=== PATIENT | female | born 1950 | race Caucasian/White ===

== ENCOUNTER 2017-10-05 13:29 | Inpatient (IN) | payer MEDICARE, BC ==
[~2017-10-05] VITALS: Ht 170.2 cm; Wt 56.7 kg
[~2017-10-05 13:29] MED LIST: BIEST CREAM TOP; DULO60CA45 PO; ESZO2TAB22 PO; LURA20TA PO; MELO7.5T12 PO; PROG1POW MC; TEST5POW5 MC
--- NOTE | 2017-10-05 13:41 | NUR ---
MSE DONE BY DR WILLIS AT BEDSIDE 01B.
[2017-10-05 14:02] LABS: EOSINOPHILS # (AUTO) 0.1 K/uL (0.0-0.7); EOSINOPHILS % (AUTO) 3.6 % (0.0-7.0); HEMATOCRIT 32.4 % (31.2-41.9); HEMOGLOBIN 11.2 g/dL (10.9-14.3); LYMPHOCYTES # (AUTO) 0.5 K/uL (20.0-40.0); LYMPHOCYTES % (AUTO) 20.5 % (20.5-51.5); MEAN CORPUSCULAR HEMOGLOBIN 35.2 uug (24.7-32.8); MEAN CORPUSCULAR HGB CONC 35 g/dL (32.3-35.6); MEAN CORPUSCULAR VOLUME 101.8 fL (75.5-95.3); MONOCYTES # (AUTO) 0.3 K/uL (2.0-10.0); MONOCYTES % (AUTO) 11.9 % (0.0-11.0); NEUTROPHILS # (AUTO) 1.6 K/uL (1.8-8.9); PLATELET COUNT (AUTO) 204 K/uL (179-408); RED BLOOD CELL COUNT(AUTO) 3.19 MIL/uL (3.63-4.92); WHITE BLOOD COUNT (AUTO) 2.5 K/uL (3.8-11.8)
[2017-10-05 14:15] LABS: POTASSIUM 4.8 mmol/L (3.5-5.1)
[2017-10-05 14:20] LABS: BILIRUBIN,DIRECT 0.1 mg/dL (0.0-0.2); BILIRUBIN,TOTAL 0.3 mg/dL (0.2-1.0); TOTAL PROTEIN, SERUM 7.1 g/dL (6.4-8.2)
[2017-10-05] MEDS ORDERED: diphenhydrAMINE 50 MG/1 ML VIAL IV ONE (14:30)
[2017-10-05] MEDS ORDERED: KETOROLAC TROMETHAMINE 30 MG INJ IVP ONE (14:30)
[2017-10-05] MEDS ORDERED: PROCHLORPERAZINE EDISYLATE 10 MG/2 ML VIAL IV ONE (14:30)
[2017-10-05] MEDS ORDERED: IV NORMAL SALINE 1000 ML BAG IV ONE (14:30)
[2017-10-05] MEDS ORDERED: diphenhydrAMINE 50 MG/1 ML VIAL ONE (14:36)
[2017-10-05] MEDS ORDERED: KETOROLAC TROMETHAMINE 30 MG INJ ONE (14:37)
[2017-10-05] MEDS ORDERED: PROCHLORPERAZINE EDISYLATE 10 MG/2 ML VIAL ONE (14:37)
[2017-10-05 14:43] LABS: BAND % (MANUAL) 2 % (0-10); EOSINOPHILS % (MANUAL) 4 % (0-8); LYMPHOCYTES % (MANUAL) 27 % (20-40); MONOCYTES % (MANUAL) 7 % (2-10); NEUTROPHILS % (MANUAL) 60 % (42-75)
[2017-10-05] MEDS ORDERED: Z GUARD REMEDY PASTE 57 GM TUBE TOP PRN (15:00)
[2017-10-05] MEDS ORDERED: NITROGLYCERIN 0.4 MG/TAB BOTTLE SL PRN (15:00)
[2017-10-05] MEDS ORDERED: ONDANSETRON 4 MG/2 ML VIAL IV PRN (15:00)
[2017-10-05] MEDS ORDERED: HYDROCODONE/APAP 5-325MG TABLET PO PRN (15:00)
[2017-10-05] MEDS ORDERED: ACETAMINOPHEN 325 MG TABLET PO PRN (15:00)
[2017-10-05] MEDS ORDERED: MAGNESIUM HYDROXIDE 30 ML LIQUID UDC PO PRN (15:00)
[2017-10-05] MEDS ORDERED: ENOXAPARIN SODIUM 40 MG/0.4 ML DISP.SYRIN SQ SCH (15:00)
[2017-10-05] MEDS: ASPIRIN 325 MG TABLET PO SCH (15:09)
[2017-10-05] MEDS ORDERED: ENOXAPARIN SODIUM 40 MG/0.4 ML DISP.SYRIN SQ ONE (15:11)
[2017-10-05] MEDS ORDERED: ASPIRIN 325 MG TABLET ONE (15:12)
--- NOTE | 2017-10-05 15:30 | NUR ---
PT UPDATED THE MED LIST FOLLOWS: PT TAKES ONLY THE FOLLOWING: KEPPRA 500MG PO BIB EFFEXOR 37.5MG PO DAILY MOBIC 7.5 MG PO BID LAMOTRIGINE 200MG PO DAILY. THE ABOVE LIST WILL BE ADDED TO MED RECONCILIATION. MICH AGOSTO RN NOTIFIED OF THIS UPDATE. TEREZA SNYDER WILL INFORM DR. PITTMAN FOR THE UPDATE.
[2017-10-05] MEDS ORDERED: LEVE500T9 PO (16:06)
[2017-10-05] MEDS ORDERED: MELO7.5T12 PO (16:06)
[2017-10-05] MEDS ORDERED: LAMO200T PO (16:06)
[2017-10-05] MEDS ORDERED: VENL75TA4 PO (16:06)
--- NOTE | 2017-10-05 16:14 | NUR ---
PT TRANSFERED TO FLOOR INSTABLE CONDITION, PT SAYS THAT THE CP HAS SUBSIDED AND HEADACHE DOWN TO TOLRABLE LEVEL.
[2017-10-05 16:27] VITALS: BP 138/72
--- NOTE | 2017-10-05 16:30 | NUR ---
ADMITTED FROM HOME VIA ER WITH ADM DX OF CHEST PAIN/HEADACHE AWAKE ALERT AND ORIENTED X3 STILL C/O STARR 08/31 DENIES CP. SR ON MONITOR. ROUTINE ADMISSION ASSESSMENT INITIATED. WILL CALL HOSPITALIST FOR ORDERS
--- NOTE | 2017-10-05 18:38 | NUR ---
RESTING COMFORTABLY IN BED NO SS OF ACUTE PAIN, SR ON MONITOR
[2017-10-05 20:00] VITALS: BP 101/46
--- NOTE | 2017-10-05 20:00 | NUR ---
Pt observed to be resting at this time, easily arousable to verbal and tactile stimuli. No s/s of distress noted. Tele noted to be sinus rhiannon with HR at 55. Bed in low, locked position. Call light within reach. Will continue to monitor closely.
[2017-10-05] MEDS ORDERED: ESZOPICLONE 2 MG PO SCH (21:00)
--- NOTE | 2017-10-05 21:30 | NUR ---
RECEIVED HOME MEDS FROM PATIENT, WILL ENDORSE TO PHARMACY
[2017-10-06] VITALS: BP 96/51
[2017-10-06 04:00] VITALS: BP 107/42
[2017-10-06 06:54] LABS: CREATININE 0.9 mg/dL (0.6-1.3); MAGNESIUM 2.1 mg/dL (1.8-2.4); POTASSIUM 4.2 mmol/L (3.5-5.1)
[2017-10-06] MEDS ORDERED: VENL37.55 PO (07:48)
[2017-10-06 08:00] LABS: BASOPHILS % (AUTO) 1.7 % (0.0-2.0); EOSINOPHILS # (AUTO) 0.1 K/uL (0.0-0.7); EOSINOPHILS % (AUTO) 5.9 % (0.0-7.0); HEMATOCRIT 31.1 % (31.2-41.9); HEMOGLOBIN 10.8 g/dL (10.9-14.3); LYMPHOCYTES # (AUTO) 0.6 K/uL (20.0-40.0); LYMPHOCYTES % (AUTO) 26.6 % (20.5-51.5); MEAN CORPUSCULAR HEMOGLOBIN 35.7 uug (24.7-32.8); MEAN CORPUSCULAR HGB CONC 35 g/dL (32.3-35.6); MEAN CORPUSCULAR VOLUME 102.6 fL (75.5-95.3); MONOCYTES # (AUTO) 0.3 K/uL (2.0-10.0); MONOCYTES % (AUTO) 11.7 % (0.0-11.0); NEUTROPHILS # (AUTO) 1.2 K/uL (1.8-8.9); NEUTROPHILS % (AUTO) 54.1 % (38.5-71.5); RED BLOOD CELL COUNT(AUTO) 3.03 MIL/uL (3.63-4.92); WHITE BLOOD COUNT (AUTO) 2.1 K/uL (3.8-11.8)
--- NOTE | 2017-10-06 08:00 | NUR ---
SEEN BY HOSPITALIST WITH DC ORDER, REMAINS SR . SEEN BY DR RAMIREZ SEE NOTES
[2017-10-06 08:02] LABS: PLATELET COUNT (AUTO) 142 K/uL (179-408)
[2017-10-06] MEDS: ASPIRIN 325 MG TABLET PO SCH (08:27)
[2017-10-06] MEDS ORDERED: LEVETIRACETAM 500 MG TABLET PO SCH (09:00)
[2017-10-06] MEDS ORDERED: VENLAFAXINE 75 MG TABLET PO SCH (09:00)
[2017-10-06] MEDS ORDERED: ENOXAPARIN SODIUM 40 MG/0.4 ML DISP.SYRIN SQ SCH (09:00)
[2017-10-06] MEDS ORDERED: LAMOTRIGINE 200 MG TABLET PO SCH (09:00)
[2017-10-06] MEDS ORDERED: MELOXICAM 7.5 MG TABLET PO SCH (09:00)
[2017-10-06] MEDS ORDERED: DULOXETINE 60 MG CAPSULE.DR PO SCH (09:00)
[2017-10-06 09:11] LABS: BASOPHILS % (MANUAL) 2 % (0-2); EOSINOPHILS % (MANUAL) 6 % (0-8); LYMPHOCYTES % (MANUAL) 26 % (20-40); MONOCYTES % (MANUAL) 12 % (2-10); NEUTROPHILS % (MANUAL) 54 % (42-75)
--- NOTE | 2017-10-06 10:02 | NUR ---
DCD HOME STABLE ACCOMPANIED BY WITH FOLLOW-UP INSTRUCTION WITH PCP AND HIGHWAY RESEARCH ENGINEER
[2017-10-06] MEDS ORDERED: VENLAFAXINE XR 37.5 MG CAP.SR.24H PO SCH (21:00)
== END 2017-10-06 10:00 | disposition home or self-care (01) | DRG 313 ==
LOC: ER 13:29 → TELE 16:04
PROVIDERS: ADMIT Internal Medicine; ATTEND Internal Medicine
DX: R07.89 Other chest pain (principal); D63.8 Anemia in other chronic diseases classified elsewhere; F32.9 Major depressive disorder, single episode, unspecified; Z85.42 Personal history of malignant neoplasm of other parts of uterus; Z92.3 Personal history of irradiation; Z92.21 Personal history of antineoplastic chemotherapy; Z90.710 Acquired absence of both cervix and uterus; G43.909 Migraine, unspecified, not intractable, without status migrainosus
CPT/HCPCS: 36415; 70030-TC; 71045; 83735; 84100; 85025; 85730; 93005; A4663; J0780; J1200; J1650; J1885; J7030